=== PATIENT | male | born 1995 | race African-American/Black ===

== ENCOUNTER 2022-08-27 06:08 | Emergency (ER) | payer MEDICAID ==
[~2022-08-27] VITALS: Ht 180.3 cm; Wt 77.0 kg
[2022-08-27 06:10] VITALS: BP 126/72
[2022-08-27] MEDS ORDERED: IBUP-2028 PO (06:48)
[2022-08-27] MEDS ORDERED: IBUPROFEN 400MG TABLET PO ONE (07:00)
== END 2022-08-27 07:21 | disposition home or self-care (01) ==
LOC: ER 06:08
DX: M79.641 Pain in right hand (principal); J45.909 Unspecified asthma, uncomplicated
CPT/HCPCS: 73120; 99283